=== PATIENT | female | born 1995 | race African-American/Black ===

== ENCOUNTER 2018-08-21 17:25 | Emergency (ER) | payer MEDICAID ==
[~2018-08-21] VITALS: Ht 160 cm; Wt 99.0 kg
[2018-08-21 23:04] LABS: BASOPHILS % 1.2 % (0.0-2.0); EOSINOPHILS % 1.6 % (0.0-5.0); HEMATOCRIT. 35.6 % (36.0-48.0); HEMOGLOBIN. 11.3 g/dL (12.0-16.0); LYMPHOCYTES % 33.4 % (20.0-50.0); MEAN CORPUSCULAR HEMOGLOBIN 21.9 pg (28.0-32.0); MEAN CORPUSCULAR VOLUME 68.8 fL (81.0-99.0); MEAN PLATELET VOLUME 7.1 fl (7.4-10.4); MONOCYTES % 7.3 % (2.0-8.0); NEUTROPHILS % 56.5 % (40.0-76.0); PLATELET 313 x1000/uL (130-400); RED BLOOD CELL COUNT 5.17 mill/uL (4.2-5.4); RED CELL DISTRIBUTION WIDTH 16.3 % (11.6-14.6)
[2018-08-22 01:06] VITALS: BP 116/66
[2018-08-22 05:45] LABS: PLATELET ESTIMATE NORMAL
== END 2018-08-22 01:09 | disposition home or self-care (01) ==
LOC: ER 17:25
DX: N93.8 Other specified abnormal uterine and vaginal bleeding (principal); N83.292 Other ovarian cyst, left side; N83.291 Other ovarian cyst, right side; F12.10 Cannabis abuse, uncomplicated
CPT/HCPCS: 36415; 76830; 76856; 81025; 84702; 99284

== ENCOUNTER 2019-07-29 14:23 | Observation (INO) | payer MEDICAID ==
[~2019-07-29] VITALS: Ht 160 cm; Wt 103.4 kg
[2019-07-29] MEDS ORDERED: PNV1TABL76 PO (14:53)
[2019-07-29 15:53] LABS: CLARITY URINE CLEAR (CLEAR); COLOR URINE YELLOW (YELLOW); KETONES URINE NEGATIVE (NEGATIVE); LEUKOCYTE ESTERASE URINE TRACE (NEGATIVE); NITRITE URINE NEGATIVE (NEGATIVE); OCCULT BLOOD URINE NEGATIVE (NEGATIVE); PH URINE 6.5 (4.5-8.0); PROTEIN URINE NEGATIVE (NEGATIVE); SPECIFIC GRAVITY URINE 1.004 (1.005-1.030); UROBILINOGEN URINE 0.2 E.U./dL (0.2-1.0)
[2019-07-29] MEDS ORDERED: LACTATED RINGERS 1,000 ML IV SCH (16:45)
[2019-07-29] MEDS ORDERED: CEFAZOLIN 2,000 MG in DEXT 5% WATER 100 ML IV SCH (16:45)
== END 2019-07-29 17:55 | disposition home or self-care (01) ==
LOC: 8 EST LDRP 14:23
PROVIDERS: ADMIT Obstetrics & Gynecology; ATTEND Obstetrics & Gynecology
DX: O26.892 Other specified pregnancy related conditions, second trimester (principal); R10.9 Unspecified abdominal pain; Z3A.22 22 weeks gestation of pregnancy
CPT/HCPCS: 76770; 76805; 81003; 99281; G0378; J0690; J7060